=== PATIENT | female | born 1965 ===

== ENCOUNTER 2025-05-02 09:59 | Outpatient (AMB) | payer OTHER, SELFPAY ==
--- NOTE | 2025-05-02 10:42 | A.OFFVIS_ITS ---
[place] [facility] [place] ciprofloxacin Allergy (Unknown, Verified 04/25/25 07:08) Unknown erythromycin base Allergy (Unknown, Verified 04/25/25 07:06) Unknown latex Allergy (Unknown, Verified 04/25/25 07:06) Unknown nitrofurantoin (From Macrobid) Allergy (Unknown, Verified 04/25/25 07:06) Unknown Penicillins Allergy (Unknown, Verified 04/25/25 07:06) Unknown sulfamethoxazole (From Bactrim) Allergy (Unknown, Verified 04/25/25 07:06) Unknown trimethoprim (From Bactrim) Allergy (Unknown, Verified 04/25/25 07:06) Unknown Medication List - Last Reconciled 05/02/25 by Lary Rao MD albuterol sulfate 90 mcg/actuation 2 puffs inhalation QID PRN uxxafbxftr-chnzqexzixyeq-rens 50-325-40 mg 1 tab PO Q6H PRN cetirizine 10 mg PO DAILY clonidine HCl 0.3 mg PO TID diazepam 5 mg PO QID PRN docusate sodium 100 mg PO BID eletriptan mg PO ipratropium bromide intranasal linaclotide (Linzess) 72 mcg PO DAILY magnesium oxide 400 mg PO DAILY montelukast 10 mg PO DAILY naproxen 500 mg PO BID PRN omeprazole 40 mg PO BID ondansetron 8 mg PO 3XW oxycodone 5 mg PO BID PRN promethazine 25 mg PO Q6H PRN rimegepant (Nurtec ODT) 75 mg PO Q OTHER DAY sucralfate 1 g PO BID sumatriptan succinate 6 mg subcut sumatriptan succinate mg PO tizanidine 4 mg PO Q8H PRN HPI Comments Details: This is a 59-year-old woman who is here for evaluation of chronic migraines. Her migraines 1st started in 1991 after a head injury during which she slipped and fell down some stairs and struck the back of her head with loss of consciousness. Since then, she has also had chronic neck problems. She has no family history of migraines. They 1st started when she was around 26 years old. When she gets a migraine, she can get nausea, vomiting, photophobia and sonophobia, and intolerance to smell. It can last a whole day. She has identified perfumes and smoke as a potential trigger. An MRI of the cervical spine in 2017 showed small disc herniations centrally at C4-5 and C5-6 with the minimal cord compression. She has been under the care of [facility] and subsequently [facility]. She has seen doctors locally as well as aT [facility] (Dr. Russell) for her chronic migraines. She has failed multiple prophylactic medications either from ineffectiveness or from an abundance of side effects. Among the medications that have been tried in the past include amitriptyline, beta blockers, topiramate, Depakote, verapamil, Flexeril, tizanidine, Aimovig, Botox injections which produce a lot of side effects. Acupuncture has been tried along with physical therapy and trigger point injections and nerve blocks. She is currently using Nurtec every other day along with two Triptan meds for p.r.n. use, supplemented with some Fioricet. She would like to get another cervical spine MRI done because of continuing problems with neck pain and stiffness. Her migraines have a throbbing character, there are generalized, and vary in severity from 5-10 on a scale of 10. She has a daily headache every single day and a migraine 1-3 days a week. She occasionally goes to the emergency room. She has also had generalized body pain since 2012 and has been tried on gabapentin, pregabalin, Cymbalta, Savella without response. MRI of the brain in 2016 and 2023 were negative. Past medical history is remarkable for asthma triggered by allergies, GERD and chronic headaches. She has previously had a partial hysterectomy and bilateral shoulder surgery for rotator cuff tears. [facility] Medical History (Updated 05/02/25 @ 10:53 by Lary Rao MD) Central sleep apnea Allergic rhinitis Hyperglycemia Common migraine without intractability Asthma GERD (gastroesophageal reflux disease) Chronic migraine without aura Review of Systems Const Reports fatigue, Reports headache(s), Reports malaise and Reports weight gain ENT Reports dizziness, Reports headache(s) and Reports neck pain GI Reports heartburn Musc Reports arthralgias and Reports neck pain Neuro Reports dizziness, Reports headache(s) and Reports paresthesias Endo Reports fatigue Physical Exam Neuro Other: Mini Mental Status Exam Level of Consciousness:?Alert.? Orientation:?Knows correct year, month, date, day and season.?Knows correct city, county and state. Knows correct location and floor.? Registration:?Able to register 3 objects.? Attention:?Serial 7's performed accurately.? Recall:?Able to recall 3 out of 3 objects.? Language:?Normal spontaneous speech, fluency, repetition, naming, comprehension, reading, and writing.? Total Score:?30/30.? Neurological Abnormal neurological findings:??none.? Mental Status:?Alert and oriented X 3.?Normal attention, orientation, memory, and affect.? Cranial Nerves:?Pupils are equal, round and reactive to light. Fundoscopy shows normal disc bilaterally. External occular muscles are intact. Visual squires are full, no ptosis. Face is symmetrical, no facial weakness or droop. Facial sensations are normal. Tongue protrudes in midline. Palate elevates symmetrically. Shoulder shrugging is normal.? Motor Examination:?Normal muscle tone, bulk and strength.?No atrophy or fasciculations.?No drift of the extended upper extremities.?Deep tendon reflexes are 2+.?Plantars are flexor.? Motor Strength:? Proximal Muscles (out of 5):?5 Distal Muscles (out of 5):?5 Neck Flexors (out of 5):?5 Neck Extensors (out of 5):?5 Deltoid (out of 5):?5 Biceps (out of 5):?5 Triceps (out of 5):?5 Serratus Anterior (out of 5):?5 Wrist Extensors (out of 5):?5 APB (out of 5):?5 Finger Spread (out of 5):?5 Ileopsoas (out of 5):?5 Quadriceps (out of 5):?5 Hamstrings (out of 5):?5 Tibialis Anterior (out of 5):?5 Peronei (out of 5):?5 EDB (out of 5):?5 Gastrocnemius (out of 5):?5 Straight Leg Raising:?90 degrees.? Sensory Exam:?Normal light touch, temperature, pinprick, vibration and joint-position sensations.?Rhomberg sign is absent.? Coordination:?No ataxia,?no titubation,?jyymmu-se-chai, sfhz-cpea-egfd test, and rapid alternating movements were normal.? Gait Exam:?Within normal limits.? Cerebellar Signs:?Acxrjc-pb-uopm and zkit-aw-dwjo is normal.?No dysdiadochokinesia.? Extrapyramidal System:?No tremor or?rigidity, normal facial expressions.?No bradykinesia. No bradyphrenia. Normal arm swing and posture. No propulsion or retropulsion.? Speech:?Normal,?no dysphasia or dysarthria.? General Examination GENERAL APPEARANCE:??normal,?in no acute distress?,?normal,?in no acute distress.? HEAD:??normocephalic,?atraumatic.? EYES:??sclera non-icteric,?conjunctiva clear.? EARS:??auditory canal clear,?tympanic membrane intact, clear.? NOSE:??no lesions.? ORAL CAVITY:??gums normal,?mucosa moist,?no lesions.? THROAT:??clear.? NECK/THYROID:??no cervical lymphadenopathy,?thyroid normal,?neck supple, full range of motion,?no carotid bruit.? SKIN:??no rashes,?no significant birthmarks.? HEART:??S1, S2 normal,?no murmurs?,?S1, S2 normal,?no murmurs.? LUNGS:??clear anteriorly and posteriorly?,?clear anteriorly and posteriorly.? CHEST:??no gross rib deformity,?clear to auscultation.? BACK:??normal exam of spine.? MUSCULOSKELETAL:??normal.? EXTREMITIES:??no edema?,?no edema.? PERIPHERAL PULSES:??normal.? PSYCH:??alert, oriented,?cognitive function intact,?cooperative with exam?,?alert, oriented,?cognitive function intact,?cooperative with exam.? Assessment & Plan Assessment & Plan (1) Chronic migraine without aura: Code(s): G43.709 - Chronic migraine without aura, not intractable, without status migrainosus Category: Medical (2) Cervical disc herniation: Code(s): M50.20 - Other cervical disc displacement, unspecified cervical region Category: Medical Plan MRI C spine. Continue current meds. Orders: Orders MR cervical spine wo con Today M50.20 - Other cervical disc displacement, unspecified cervical region Coding Level of Care Code New Pt Level 5 (03360) Diagnoses Chronic migraine without aura G43.709 Cervical disc herniation M50.20
--- OUTSIDE RECORDS SUMMARY | 2025-05-02 10:45 | XMS_ITS | Clinical Summary ---
Author Organization [facility] Address [address] [place] [address] Care Team Providers Care Utilities And Maintenance Supervisor Name Role Phone Unavailable Primary Care Provider Unavailabl e Source Comments PLEASE NOTE, if this patient is a minor, it may be UNLAWFUL to discuss sensitive information that is contained in these records (such as FAMILY PLANNING, MENTAL HEALTH or SUBSTANCE ABUSE) with the minor patient's parent or other person without the patient's specific authorization.[facility] Immunizations Immunization Administration Dates Next Due Moderna COVID-19 Vaccine, re d cap blue label, 12+ Primary Series 12/17/2020,11/19/2020 Social History Tobacco Use Types Packs/Day Years Used Date Smoking Tobacco: Never Assessed Social Connections Answer Date Recorded Social Connections and Isolation 0 12/27/2023 Financial Resource Strain Answer Date R ecorded Financial Resource Strain 0 2023 Stress Answer Date Recorded Stress 0 12/27/2023 Physical Activity Answer Date Recorded Physical Activity 0 12/27/2023 Food Insecurity Answer Date Recorded Food 0 12/27/2023 Transportation Needs Answer Date Record ed Transportation 0 12/27/2023 Housing Stability Answer Date Recorded Housing 0 12/27/2023 Safety and Environment Answer Date Hossein rded Safety 0 12/27/2023 Utilities Answer Date Recorded Utilities 0 12/27/2023 Employment Answer Date Recorded Employment 0 12/27/2023 Comments Unknown Sex and Gender Information Value Date Recorded Sex Assigned at Not on file Legal Sex Female 9:39 AM PDT Gender Identity Not on file Sexual Orientation Not on file Plan of Treatment Health Maintenance Due Date Last Done Comments Anxiety Screening 1964 Diabetes Screening 1964 HPV Screening 1964 Hepatitis C Screening 1964 Lipid Screening 1964 Pap + HPV 1964 Tobacco Screening 1964 HIV Screening 12/27/1979 Hypertension Screening (#1) 1982 Medicare Annual Wellness Visit 1982 Imm-DTaP/Tdap/Td (1 - Tdap) 12/27/1983 Cervical Cancer Screening 1985 Pap Smear 1985 Breast Cancer Screening (Mammogram) 2004 CT Colonography 2009 Colonoscopy 2009 Colorectal Cancer Screening 2009 FIT/gFOBT 2009 Fecal DNA 2009 Flexible Sigmoidoscopy 2009 Imm-Pneumococcal 50+ (1 of 1 - PCV) 2014 Imm-Zoster, Recombinant (1 o f 2) 2014 Uow-QLGRZ-40 (3 - season) 2024 12/17/2020, 11/19/2020 Alcohol and Drug Screen 09/06/2024 Depression Annual Screen 09/06/2024 Imm-Influenza (#1) 2025 05/25/2018, 05/20/2017 Cervical Ablation/Cold-Knife Conization Discontinued Cervical Cryotherapy Discontinued Colposcopy Discontinued Endometrial Biopsy Discontinued Excision/Leep Discontinued HPV Genotyping Discontinued Imm-Hepatitis B Aged Out No longer el igible based on patient's age to complete this topic Vaginal Pap Discontinued Vulvoscopy Discontinued Insurance [facility]
--- OUTSIDE RECORDS SUMMARY | 2025-05-02 10:45 | XMS_ITS | Clinical Summary ---
Author Organization [facility] 299 [facility] Address [address] [place] [address] Phone Care Team Providers Care Varnish Filterer Name Role Phone Wilian Peters MD Primary Care Provider [phone] Allergies Active Allergy Reactions Criticality Noted Date Comments Ciprofloxacin Rash Low 12/09/2022 may take levaquin. may take levaquin. may take levaquin. Erythromycin Itching,Rash Low 12/09/2022 Latex Itching,Rash Low 12/09/2022 Metronidazole Itching,Rash Low 12/09/2022 Nitrofurantoin Monohyd/M-Cryst Itching,Rash Low 12/09/2022 Penicillin Itching,Rash Low 12/09/2022 Sulfamethoxazole-Trimethopri m Rash Low 12/09/2022 Medications albuterol HFA (PROAIR HFA ; PROVENTIL HFA ; VENTOLIN HFA) 90 mcg/actuation inhaler Inhale 2 puffs by mouth 4 (four) times a day if needed. 023 Active albuterol 2.5 mg /3 mL (0.083 %) nebulizer solution INHALE 3 ML BY NEBULIZATION 3 TIMES A DAY Active Alcohol Prep Pads pads, medicated USE DAILY PRIOR TO IMITREX INJECTION. 025 Active azelastine (ASTELIN) 137 mcg (0.1 %) nasal spray INHALE 2 SPRAY INTO BOTH NOSTRILS TWICE A DAY DIRECTED Active cetirizine (ZyrTEC) 10 mg tablet Take 1 tablet (10 mg total) by mouth 1 (one) time each day. 023 Active cloNIDine (CATAPRES) 0.3 mg tablet Take 1 tablet (0.3 mg total) by mouth. Active diazePAM (VALIUM) 5 mg tablet TAKE 1/2 TO 1 TABLET BY MOUTH 3-4 TIMES A DAY TOLERATED AND NEEDED Active eletriptan (RELPAX) 40 mg tablet PLEASE SEE ATTACHED FOR DETAILED DIRECTIONS Active fluticasone propion-salmetero L (Advair HFA) 230-21 mcg/actuation inhaler INHALES 2 PUFFS 2 TIMES A DAY. RINSE MOUTH AND THROAT AFTER USE 023 Active fluticasone propionate (FLONASE) 50 mcg/actuation nasal spray Administer 1 spray into each nostril 2 (two) times a day. Active magnesium oxide (MAG-OX) 400 mg (241.3 elemental magnesium) tablet Take 1 tablet (400 mg total) by mouth 1 (one) time each day. Active montelukast (SINGULAIR) 10 mg tablet Take 1 tablet (10 mg total) by mouth. 023 Active naproxen (NAPROSYN) 500 mg tablet TAKE 1 TABLET BY MOUTH 2 TIMES A DAY,X30 DAYS NEEDED FOR ARTHRITIS,INSTR :WITH FOOD Active oxyCODONE (ROXICODONE) 5 mg immediate release tablet PLEASE SEE ATTACHED FOR DETAILED DIRECTIONS 023 Active Compro 25 mg suppository INSERT 1 SUPPOSITORY (25 MG) BY RECTAL ROUTE ONCE DAILY NEEDED FOR NAUSEA WITH MIGRAINE Active Nurtec 75 mg dispersible tablet PLEASE SEE ATTACHED FOR DETAILED DIRECTIONS 023 Active promethazine (PHENERGAN) 25 mg tablet Take 1 tablet (25 mg total) by mouth every 6 (six) hours if needed. 023 Active SUMAtriptan (IMITREX) 100 mg tablet TAKE 1/2 -1 TAB BY MOUTH WITH EACH MIGRAINE. MAY REPEAT DOSE AFTER 1 HR. MAX. 2/24 HR AND 6/WEEK Active SUMAtriptan (IMITREX) 6 mg/0.5 mL subcutaneous solution PLEASE SEE ATTACHED FOR DETAILED DIRECTIONS 025 Active tiZANidine (ZANAFLEX) 2 mg tablet PLEASE SEE ATTACHED FOR DETAILED DIRECTIONS 023 Active linaCLOtide (Linzess) 72 mcg capsuleIndication s:Constipation, unspecified constipation type Take 1 capsule (72 mcg total) by mouth 1 (one) time each day. 90 each 3 025 2025 Active omeprazole (PriLOSEC) [address] capsuleIndication s:Gastroesophagea l reflux disease without esophagitis Take 1 capsule (40 mg total) by mouth 2 (two) times a day. 180 each 3 025 2025 Active docusate sodium (COLACE) 100 mg capsuleIndication s:Constipation, unspecified constipation type Take 1 capsule (100 mg total) by mouth 2 (two) times a day. 180 each 3 025 2025 Active polyethylene glycol (MIRALAX) 17 gram packetIndications :Constipation, unspecified constipation type Take 17 g by mouth 1 (one) time each day. 1530 g 3 025 2025 Active ondansetron ODT (ZOFRAN-ODT) 8 mg disintegrating tablet DISSOLVE 1 TABLET UNDER THE TONGUE ONCE DAILY NEEDED FOR NAUSEA 2024 Discontinued ondansetron ODT (ZOFRAN-ODT) 4 mg disintegrating tabletIndications :Other migraine without status migrainosus, not intractable,Nause a and vomiting, unspecified vomiting type Let 1 tablet dissolve under the tongue three times daily as needed for nausea or vomiting. 10 tablet 025 2024 Encounters Date Type Department Care Team Description 04/12/2025 1:00 AM EDT - 04/12/2025 5:04 AM EDT Emergency [facility] Emergency [address] [place] [id number] Nemo Pina MD Other migraine without status migrainosus, not intractable (Primary Dx); Acute chest pain; Anxiety; Nausea and vomiting, unspecified vomiting type Discharge Disposition: Home or Self Care 03/02/2025 8:20 AM EDT Office Visit Gastroenterology - 299 [facility] [address] [phone] Razia Loera PA Constipation, unspecified constipation type; Gastroesophageal reflux disease without esophagitis 02/15/2025 Telephone Gastroenterology - [address] [facility] [address] [place] [address] Lindsey Rodriguez NP from Last 3 Months Immunizations Name Administration Dates Next Due Moderna SARS-CoV-2 COVID-19, mRNA, LNP-S, preservative free 12/17/2020,11/19/2020 Surgical History Surgery Date Site/Laterality Comments SHOULDER SURGERY COLONOSCOPY 02/05/2024 - 03/05/2024 int rhoids, melanosis coli on random colon biopsy (5 yr/hx polyps) Dr. Shoemaker ESOPHAGOGASTRODUODENOSCOPY 02/05/2024 - 03/05/2024 unremarkable including small bowel and gastric biopsies Dr. Shoemaker HYSTERECTOMY Medical History Medical History Date Comments Acid reflux Colon polyps Irritable bowel syndrome with constipation Anxiety and depression Asthma Migraines Fibromyalgia History of total hysterectomy Social History Tobacco Use Types Packs/Day Years Used Date Smoking Tobacco: Never Smokeless Tobacco: Never Tobacco Cessation:Counseling Given: Not Answered Alcohol Use Standard Drinks/Week Comments Never 0 (1 standard drink = 0.6 oz pur e alcohol) Comments No Sex and Gender Information Value Date Recorded Sex Assigned at Not on file Legal Sex Female 5:41 PM EST Gender Identity Not on file Sexual Orientation Not on file Obstetrics History Last Filed Vital Signs Vital Sign Reading Time Taken Comments Blood Pressure 122/62 04/12/2025 3:51 AM EDT Pulse 83 04/12/2025 3:51 AM EDT Temperature 36.7 C (98.1 F) 04/12/2025 3:51 AM EDT Respiratory Rate 22 04/12/2025 3:51 AM EDT Oxygen Saturation 100% 04/12/2025 3:51 AM EDT Inhaled Oxygen Concentration - - Weight 68 kg (150 lb) 04/12/2025 12:18 AM EDT Height 157.5 cm (5' 2 ) 04/12/2025 12:18 AM EDT Body Mass Index 27.44 04/12/2025 12:18 AM EDT Plan of Treatment Upcoming Encounters Date Type Department Care Team (Late st Contact Info) Description 03/04/2026 8:00 AM EDT Office Visit Gastroenterology - [address] [phone] Razia Loera PA [address] [place] [phone] Health Maintenance Due Date Last Done Comments Breast Cancer Screening 1964 Pneumococcal Vaccine: 50+ Years (1 of 2 - PCV) 12/27/1983 Cervical Cancer Screening: Pap Smear 1985 Zoster Vaccines (1 of 2) 2014 HIV Screening 08/08/2022 Hepatitis C Screening 08/08/2022 Medicare Annual Wellness Visit 08/08/2022 Social Influencers of Health Screening 08/08/2022 Depression Screening 09/06/2024 RSV Immunization Adult Patients (1 - Risk 60-74 years 1-dose series) 2024 Influenza Vaccine (#1) 2025 , 06/03/2023, 07/07/2022, Additional history exists DTaP,Tdap,and Td Vaccines (3 - Td or Tdap) 08/14/2031 08/14/2021, 07/09/2006 Colorectal Cancer Screening: Colonoscopy 04/10/2035 04/10/2025, 05/17/2018 COVID-19 Vaccine Completed 10/11/2024, , 07/07/2022, Additional history exists HIB Vaccines Aged Out No longer eligi ble based on patient's age to complete this topic HPV Vaccines Aged Out No longer eligi ble based on patient's age to complete this topic Hepatitis A Vaccines Aged Out No long er eligible based on patient's age to complete this topic Hepatitis B Vaccines Aged Out No long er eligible based on patient's age to complete this topic IPV Vaccines Aged Out No longer eligi ble based on patient's age to complete this topic MMR Vaccines Aged Out No longer eligi ble based on patient's age to complete this topic Meningococcal ACWY Vaccine Aged Out N o longer eligible based on patient's age to complete this topic Meningococcal B Vaccine Aged Out No l onger eligible based on patient's age to complete this topic RSV Immunization Patients Under 20 months Aged Out No longer eligible based on patient's age to complete this topic Varicella Vaccines Aged Out No longer eligible based on patient's age to complete this topic Procedures Procedure Name Priority Date/Time Associated Diagnosis Comments ECG ANNOTATED 04/13/2025 XR CHEST 2 VIEWS STAT 04/12/2025 4:03 AM EDT TROPONIN I HIGH SENSITIVITY Timed 04/12/2025 2:48 AM EDT CBC WITH AUTO DIFFERENTIAL STAT 04/12/2025 1:13 AM EDT B-TYPE NATRIURETIC PEPTIDE STAT 04/12/2025 1:13 AM EDT MAGNESIUM STAT 04/12/2025 1:13 AM EDT LIPASE STAT 04/12/2025 1:13 AM EDT COMPREHENSIVE METABOLIC PANEL STAT 04/12/2025 1:13 AM EDT CBC AND DIFFERENTIAL STAT 04/12/2025 1:13 AM EDT TROPONIN I HIGH SENSITIVITY Timed 04/12/2025 1:13 AM EDT ECG 12-LEAD STAT 04/12/2025 12:26 AM EDT EXTERNAL COLONOSCOPY REPORT Routine 04/10/2025 2:03 PM EDT from Last 3 Months Results * ECG-Annotated (04/13/2025) us Provider Onbase MD ECG ORDERABLES Final Result * XR Chest 2 Views (04/12/2025 4:03 AM EDT) Anatomical Region Laterality Modality Body Radiographic Kylah ging 04/12/2025 8:13 AM EDT Impressions 04/12/2025 8:14 AM EDT No acute findings. -------- FINAL REPORT -------- Dictated By: Alexi Lora Dictated Date: 04/12/2025 08:13 ET Assigned Physician: Alexi Lora Reviewed and Electronically Signed By: Alexi Lora Signed Date: 04/12/2025 08:14 ET Workstation ID: [id number] Transcribed By: Self Edit Transcribed Date: 04/12/2025 08:13 ET Narrative 04/12/2025 8:14 AM EDT PROCEDURE: PA and lateral radiographs of the chest. HISTORY: chest pain. COMPARISON: 03/09/2024. FINDINGS: Orthopedic anchors in the right humeral head. Mild degenerative changes of the spine and shoulders. Lungs, pleural spaces, pulmonary vasculature, and cardiomediastinal contours are normal. Procedure Note Alexi Lora MD - 04/12/2025 PROCEDURE: PA and lateral radiographs of the chest. HISTORY: chest pain. COMPARISON: 03/09/2024. FINDINGS: Orthopedic anchors in the right humeral head. Mild degenerative changesof the spine and shoulders. Lungs, pleural spaces, pulmonary vasculature,and cardiomediastinal contours are normal. IMPRESSION: No acute findings. -------- FINAL REPORT -------- Dictated By: Alexi Lora Dictated Date: 04/12/2025 08:13 ET Assigned Physician: Alexi Lora Reviewed and Electronically Signed By: Alexi Lora Signed Date: 04/12/2025 08:14 ET Workstation ID: [id number] Transcribed By: Self Edit Transcribed Date: 04/12/2025 08:13 ET Nemo Pina MD IMG XR PROCEDURES Final Result * Troponin I high sensitivity (04/12/2025 2:48 AM EDT) Only the most recent of2 resultswithin the time period is included. [facility] High Sensitivity Troponin I 4 <=54 ng/L LAB CHEMISTRY METHOD 04/12/2025 3:16 AM EDT [facility] Blood Venous blood specimen / Unknown Venipuncture / Unknown 04/12/2025 2:48 AM EDT 04/12/2025 2:52 AM EDT Narrative [facility] - 04/12/2025 3:16 AM EDT High levels of biotin in samples may falsely decrease hsTroponin values. Use caution when interpreting hsTroponin results in patients taking biotin who exhibit renal impairment (eGFR <60) or in patients taking more than 20 mg/day of biotin. us Nemo Pina MD LAB BLOOD ORDERABLES Final Res ult [facility] [address] [place] [address], [place] [phone] * (ABNORMAL) CBC auto differential (04/12/2025 1:13 AM EDT) WBC 7.1 4.8 - 10.8 K/mcL LAB HEMETOLOGY METHOD 04/12/2025 1:39 AM EDT [facility] RBC 4.70 3.80 - 4.80 M/mcL LAB [facility] Hemoglobin 13.4 11.5 - 16.0 g/dL LAB HEMETOLOGY METHOD 04/12/2025 1:39 AM EDT [facility] Hematocrit 42.2 35.0 - 47.0 % LAB HEMETOLOGY METHOD 04/12/2025 1:39 AM EDT [facility] MCV 89.4 79.0 - 98.0 FL LAB HEMETOLOGY METHOD 04/12/2025 1:39 AM [facility] MCH 28.4 27.0 - 32.0 pcg LAB HEMETOLOGY METHOD 04/12/2025 1:39 AM [facility] MCHC 31.8(L) 32.0 - 37.0 g/dL LAB HEMETOLOGY METHOD 04/12/2025 1:39 AM [facility] RDW 13.4 11.0 - 15.0 % LAB HEMETOLOGY METHOD 04/12/2025 1:39 AM [facility] Platelets 346 130 - 400 K/mcL LAB HEMETOLOGY METHOD [facility]/12/2025 1[facility] MPV 10.3 7.0 - 11.0 FL LAB HEMETOLOGY METHOD 04/12/2025 1:39 AM [facility] NRBC 0.0 <1.0 % LAB HEMETOLOGY METHOD 04/12/2025 1:39 AM [facility] NRBC Absolute 0.00 <0.10 K/mcL LAB HEMETOLOGY METHOD 04/12/2025 1:39 AM [facility] Neutrophils Relative 68.3 % LAB HEMETOLOGY METHOD 04/12/2025 1:39 AM [facility] Lymphocytes Relative 26.0 % LAB HEMETOLOGY METHOD 04/12/2025 1:39 AM [facility] Monocytes Relative 4.4 % LAB HEMETOLOGY METHOD 04/12/2025 1:39 AM [facility] Eosinophils Relative 0.4 % LAB HEMETOLOGY METHOD 04/12/2025 1:39 AM [facility] Basophils Relative 0.6 % LAB HEMETOLOGY METHOD 04/12/2025 1:39 AM [facility] Immature Granulocytes Relative 0.3 % LAB HEMETOLOGY METHOD 04/12/2025 1:39 AM [facility] Neutrophils Absolute 4.83 1.50 - 7.00 K/mcL LAB HEMETOLOGY METHOD 04/12/2025 1:39 AM [facility] Lymphocytes Absolute 1.84 1.00 - 5.00 K/mcL LAB HEMETOLOGY METHOD 04/12/2025 1:39 AM [facility] Monocytes Absolute 0.31 0.20 - 1.00 K/mcL LAB HEMETOLOGY METHOD 04/12/2025 1:39 AM [facility] Eosinophils Absolute 0.03 0.00 - 0.50 K/mcL LAB HEMETOLOGY METHOD 04/12/2025 1:39 AM EDT [facility] Basophils Absolute 0.04 0.00 - 0.20 K/[facility] LAB HEMETOLOGY METHOD 04/12/2025 1:39 AM EDT [facility] Immature Granulocytes Absolute 0.02 0.00 - 0.03 K/[facility] LAB HEMETOLOGY METHOD 04/12/2025 1:39 AM EDT [facility] Blood Venous blood specimen / Unknown Venipuncture / Unknown 04/12/2025 1:13 AM EDT 04/12/2025 1:35 AM EDT us Nemo Pina MD LAB BLOOD ORDERABLES Final Res ult Performing Organization Address [facility]/ZIP Co de Phone Number [facility] [address] [place] [address], [place] [phone] * B-type natriuretic peptide (04/12/2025 1:13 AM EDT) BNP 3 <=100 pcg/mL LAB CHEMISTRY METHOD 04/12/2025 2:19 AM EDT [facility] Blood Venous blood specimen / Unknown Venipuncture / Unknown 04/12/2025 1:13 AM EDT 04/12/2025 1:35 AM EDT us Nemo Pina MD LAB BLOOD ORDERABLES Final Res ult [facility] [address] [place] [address], [place] [phone] * Magnesium (04/12/2025 1:13 AM EDT) Magnesium 2.3 1.9 - 2.6 mg/dL LAB CHEMISTRY METHOD 04/12/2025 1:57 AM EDT [facility] Blood Venous blood specimen / Unknown Venipuncture / Unknown 04/12/2025 1:13 AM EDT 04/12/2025 1:35 AM EDT us Nemo Pina MD LAB BLOOD ORDERABLES Final Res ult [facility] [address] [place] [address], [place] [phone] * Lipase (04/12/2025 1:13 AM EDT) [facility] Lipase 54 13 - 75 unit/L LAB CHEMISTRY METHOD 04/12/2025 1:57 AM EDT [facility] Blood Venous blood specimen / Unknown Venipuncture / Unknown 04/12/2025 1:13 AM EDT 04/12/2025 1:35 AM EDT Nemo Pina MD LAB BLOOD ORDERABLES Final Res ult Performing Organization Address City/[facility]/ZIP Co de Phone Number [facility] [address] [place] [address], [place] [phone] * (ABNORMAL) Comprehensive metabolic panel (04/12/2025 1:13 AM EDT) [facility] Sodium 140 133 - 145 mmol/L LAB CHEMISTRY METHOD 04/12/2025 1:57 AM EDT [facility] Potassium 4.1 3.5 - 5.5 mmol/L LAB CHEMISTRY METHOD 04/12/2025 1:57 AM EDT [facility] Chloride 108 96 - 110 mmol/L LAB CHEMISTRY METHOD 04/12/2025 1:[facility] CO2 27 21 - 32 mmol/L LAB CHEMISTRY METHOD 04/12/2025 1:57 AM EDT [facility] Anion Gap 5 3 - 11 LAB CHEMISTRY METHOD 04/12/2025 1:[facility] Glucose 106(H) 70 - 100 mg/dL LAB CHEMISTRY METHOD 04/12/2025 1:57 AM [facility] BUN 15 5 - 25 mg/dL LAB CHEMISTRY METHOD 04/12/2025 1:57 AM [facility] Creatinine 0.96 0.50 - 1.10 mg/dL LAB CHEMISTRY METHOD 04/12/2025 1:57 AM [facility] eGFR 68 >=60 mL/min/1. 73m2 LAB CHEMISTRY METHOD 04/12/2025 1:57 AM [facility] Comment:Calculation based on the Chronic Kidney Disease Epidemiology Collaboration (CKD-EPI) equation refit without adjustment for race. BUN/Creatinine Ratio 15.6 LAB CHEMISTRY METHOD 04/12/2025 1:57 AM [facility] Calcium 9.1 8.5 - 10.5 mg/dL LAB CHEMISTRY METHOD 04/12/2025 1:57 AM [facility] AST (SGOT) 28 10 - 42 unit/L LAB CHEMISTRY METHOD 04/12/2025 1:57 AM [facility] ALT (SGPT) 29 10 - 60 unit/L LAB CHEMISTRY METHOD 04/12/2025 1:57 AM [facility] Alkaline Phosphatase 112 42 - 121 unit/L LAB CHEMISTRY METHOD 04/12/2025 1:57 AM [facility] Total Protein 7.6 6.0 - 8.0 g/dL LAB CHEMISTRY METHOD 04/12/2025 1:57 AM [facility] Albumin 4.1 3.2 - 5.0 g/dL LAB CHEMISTRY METHOD 04/12/2025 1:57 AM [facility] Total Bilirubin 0.2 0.0 - 1.4 mg/dL LAB CHEMISTRY METHOD 04/12/2025 1:57 AM [facility] Blood Venous blood specimen / Unknown Venipuncture / Unknown 04/12/2025 1:13 AM EDT 04/12/2025 1:35 AM EDT Nemo Pina MD LAB BLOOD ORDERABLES Final Res ult Performing Organization Address City/[facility]/ZIP Co de Phone Number [facility] [address] [place] [address], * ECG 12 lead (04/12/2025 12:26 AM EDT) Ventricular Rate ECG 85 BPM GEMUSE Atrial Rate 85 BPM GEMUSE P-R Interval 138 ms GEMUSE QRS Duration 68 ms GEMUSE Q-T Interval 388 ms GEMUSE QTc 461 ms GEMUSE P Wave [place] 61 degrees GEMUSE R [place] 11 degrees GEMUSE T [place] 28 degrees GEMUSE ECG Interpretation Normal sinus rhythm Nonspecific ST abnormality Abnormal ECG When compared with ECG of 09-MAR-2024 07:19, Vent. rate has increased BY 32 BPM Confirmed by Jessica REID JOHN ([id number]) on 04/12/2025 4:46:03 PM GEMUSE 04/12/2025 12:2 6 AM EDT 04/12/2025 4:46 PM EDT Nemo Pina MD ECG ORDERABLES Final Result Performing Organization Address City/[facility] Co de Phone Number SMITHA * External Colonoscopy Report (04/10/2025 2:03 PM EDT) Anatomical Region Laterality Modality Endoscopy Historical Provider GI~PROCEDURE ORDERABLES F inal Result from Last 3 Months Insurance [facility] MEDICARE Member Subscriber Plan / Payer (Ef fective 2013-Present) Name:CECELIA ALVARENGA Relation to Subscriber:Self Name:Cecelia Alvarenga Payer ID:[id number] Group ID:[id number] Type:Not on file Address: [address] [facility] [place] [address] Care Teams Varnish Filterer Relationship Specialty Start Date End Date Wilian Peters MD [address] [place] [phone] PCP - General Internal Medicine 09/12/14
--- OUTSIDE RECORDS SUMMARY | 2025-05-02 10:45 | XMS_ITS ---
Author Name [facility] Organization Unknown History of Medication Use Medication Directions Dispensed Refills Start Date End Date Stat us Nurtec 75 MG TBDP ODT PLEASE SEE ATTACHED FOR DETAILED DIRECTIONS 02/07/2024 active promethazine (PHENERGAN) tablet 25 mg Take by mouth. 11/21/2022 active oxyCODONE (ROXICODONE) 5 MG immediate release tablet Take 2 tablets (10 mg total) by mouth. 11/12/2022 02/26/2024 active magnesium oxide (MAG-OX) 400 MG tablet Take 1 tablet (400 mg total) by mouth daily. 09/25/2022 active Allergies Allergen Reaction Severity Comment Documented Date Source Statu s SULFAMETHOXAZOLE-TRIM ETHOPRIM RASH 12/09/2022 [facility] active CIPROFLOXACIN RASH may take levaquin. [facility] CLARITHROMYCIN RASH [facility] ERYTHROMYCIN RASH [facility] LATEX ITCHING [facility] METRONIDAZOLE RASH [facility] NITROFURANTOIN RASH [facility] PENICILLIN G RASH [facility] Problems Problem Status Onset Date Problem Type Date of Resolution Source Migraine without aura and with status migrainosus, not intractable active EncounterDiagnosisAct CTT [facility]
--- OUTSIDE RECORDS SUMMARY | 2025-05-02 10:45 | XMS_ITS | Clinical Summary ---
Author Organization [facility] Address [address] [place] [address] Care Team Providers Care Maintenance Specialist Name Role Phone Unavailable Primary Care Provider Unavailabl e Allergies Active Allergy Reactions Criticality Noted Date Comments Ciprofloxacin Rash Low 12/09/2022 may take levaquin. may take levaquin. Clarithromycin Itching,Rash Low 12/09/2022 Erythromycin Itching,Rash Low 12/09/2022 Latex Rash,Itching Low 12/09/2022 Metronidazole Itching,Rash Low 12/09/2022 Nitrofurantoin Itching,Rash Low 12/09/2022 Penicillin G Itching,Rash Low 12/09/2022 Sulfamethoxazole-Trimethopri m Rash Low 12/09/2022 Medications Medication Sig Dispensed Refills Start Date End Date Status omeprazole (PriLOSEC) 40 MG capsule Take 1 capsule (40 mg total) by mouth 2 (two) times a day. 0 01/18/2024 Active magnesium oxide (MAG-OX) 400 MG tablet Take 1 tablet (400 mg total) by mouth daily. 0 09/25/2022 Active cloNIDine (CATAPRES) 0.3 MG tablet Take 1 tablet (0.3 mg total) by mouth 3 (three) times a day. 0 02/06/2024 Active ACETAMINOPHEN-BUTALB ITAL 50-325 MG TABS Take 1 tablet by mouth every 8 (eight) hours as needed. 0 09/24/2022 Active diazePAM (VALIUM) tablet 5 mg TAKE 1/2 TO 1 TABLET 3 TO 4 TIMES DAILY TOLERATED AND NEEDED 0 02/11/2024 Active naproxen (NAPROSYN) 500 MG tablet See Instructions, TAKE 1 TABLET BY MOUTH TWICE A DAY NEEDED FOR PAIN WITH FOOD, # 60 tablet, 5 Refills, Maintenance, 10/11/23 7:43:00 EST, [id number], 157, cm, 09/13/23 13:28:00 EST, Height, 71.3, kg, 12/04/21 14:15:00 EDT, Dry Weight 0 11/23/2022 Active Diclofenac Sodium 1 % GEL APPLY 2 GRAMS TO THE AFFECTED AREA(S) BY TOPICAL ROUTE 4 TIMES PER DAY 0 02/15/2024 Active ondansetron (ZOFRAN) 8 MG tablet 0 12/08/2022 Active SUMAtriptan (IMITREX) 100 MG tablet TAKE 1/2 -1 TAB BY MOUTH WITH EACH MIGRAINE. MAY REPEAT DOSE AFTER 1 HR. MAX. 2/24 HR AND 6/WEEK 0 06/07/2020 Active promethazine (PHENERGAN) tablet 25 mg Take by mouth. 0 11/21/2022 Active Nurtec 75 MG TBDP ODT PLEASE SEE ATTACHED FOR DETAILED DIRECTIONS 0 02/07/2024 Active Social History Tobacco Use Types Packs/Day Years Used Date Smoking Tobacco: Unknown Sex and Gender Information Value Date Recorded Sex Assigned at Not on file Gender Identity Not on file Sexual Orientation Not on file Job Start Date Occupation Industry Not on file Not on file Not on file Last Filed Vital Signs Vital Sign Reading Time Taken Comments Blood Pressure 94/61 02/21/2024 1:09 PM EDT Pulse 73 02/21/2024 1:09 PM EDT Temperature - - Respiratory Rate - - Oxygen Saturation 98% 02/21/2024 1:09 PM EDT Inhaled Oxygen Concentration - - Weight 68.9 kg (152 lb) 02/21/2024 1:09 PM EDT Height 157.5 cm (5' 2 ) 02/21/2024 1:09 PM EDT Body Mass Index 27.8 02/21/2024 1:09 PM EDT Plan of Treatment Health Maintenance Due Date Last Done Comments Hepatitis C Screening 1964 Depression Screening 1976 Preventative Health Evaluation 1982 Cervical Cancer Screening (Pap Smear) 1985 Colon Cancer Screening (Colonoscopy) 2009 Breast Cancer Screening (Mammogram) 2014 Shingrix-Zoster Vaccine (1 of 2) 2014 DTap / Tdap / Td (1 - Tdap) 08/15/2021 08/14/2021, 1 09/08/2005 COVID-19 Vaccine ( season) 2024 06/03/2023, 12/17/2020, 11/19/2020 Influenza Vaccine (#1) 2025 , 07/07/2022, 07/05/2021, Additional history exists RSV Adult > 60+ Yrs or (1 - 1-dose 75+ series) 12/27/2039 Hepatitis B Vaccines Aged Out No long er eligible based on patient's age to complete this topic Pneumococcal Vaccine Aged Out No long er eligible based on patient's age to complete this topic RSV Ped < 20 months Aged Out No longe r eligible based on patient's age to complete this topic
== END 2025-05-02 11:06 | disposition home or self-care (01) ==
LOC: HO.HSM 09:59
PROVIDERS: PCP Internal Medicine; Referring Provider Internal Medicine; Visit Provider Psychiatry & Neurology Neurology
DX: G43.709 Chronic migraine without aura, not intractable, without status migrainosus (principal); M50.20 Other cervical disc displacement, unspecified cervical region
CPT/HCPCS: 99204

== ENCOUNTER → 2025-05-02 09:59 | Outpatient (BNVA) | payer OTHER, SELFPAY | PROVIDERS: PCP Internal Medicine; Referring Provider Internal Medicine; Visit Provider Psychiatry & Neurology Neurology | DX: G43.009 Migraine without aura, not intractable, without status migrainosus (principal); M50.20 Other cervical disc displacement, unspecified cervical region | CPT/HCPCS: 99202 ==